=== PATIENT | female | born 1960 | race African-American/Black ===

== ENCOUNTER 2017-04-12 08:37 | Emergency (ER) | payer BC ==
[~2017-04-12] VITALS: Ht 172.7 cm; Wt 110.0 kg
[2017-04-12 13:05] VITALS: BP 137/80
== END 2017-04-12 13:08 | disposition home or self-care (01) ==
LOC: ER 09:04
DX: R51 Headache (principal); R11.2 Nausea with vomiting, unspecified; R42 Dizziness and giddiness; I10 Essential (primary) hypertension; G43.909 Migraine, unspecified, not intractable, without status migrainosus; W19.XXXA Unspecified fall, initial encounter; Y93.89 Activity, other specified; Y92.89 Other specified places as the place of occurrence of the external cause; Y99.8 Other external cause status
CPT/HCPCS: 99281